=== PATIENT | male | born 1985 | race Caucasian/White ===

== ENCOUNTER 2020-02-29 18:51 | Observation (INO) | payer SELFPAY ==
--- NOTE | 2020-02-29 20:17 | ER Document Report ---
ED Medical Screen (RME) - General Chief Complaint: Hand Injury Stated Complaint: HAND INJURY Time Seen by Provider: 02/29/20 20:04 Mode of Arrival: Ambulatory Information source: Patient Notes: Patient is a 34-year-old male comes emergency room complaining of right ring finger pain and swelling. 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 - HPI Onset: Yesterday Onset/Duration: Sudden - With occasional buccal pain level very ago Pain Level: 4 Exacerbated by: Movement - Related Data Allergies/Adverse Reactions: No Known Allergies Allergy (Verified 02/29/20 20:03) Physical Exam - Vital signs Vitals: Temp Pulse Resp BP Pulse Ox 98.7 F 72 18 154/74 H 99 02/29/20 19:11 02/29/20 19:11 02/29/20 19:11 02/29/20 19:11 02/29/20 19:11 Interpretation: Normal - Notes Notes: PHYSICAL EXAMINATION: GENERAL well-nourished and in no acute distress. HEAD: Atraumatic, normocephalic. EYES: Pupils equal round and reactive to light, extraocular movements intact, sclera anicteric, conjunctiva are normal. ENT: Nares patent, oropharynx clear without exudates. Moist mucous membranes. NECK: Normal range of motion, supple without lymphadenopathy LUNGS: Breath sounds clear to auscultation bilaterally and equal. No wheezes rales or rhonchi. HEART: Regular rate and rhythm without murmurs Musculoskeletal: Examination patient's area concern is his right ring finger. Evaluation shows patient unable to get full extension of the finger at the PIP and noticed on the palmar side there is an area that appears to have been punctured. Swelling is moderate although patient has normal cap refill in the nailbeds of the finger. 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 NEUROLOGICA. He says he will be reevaluated by someone in the back normal speech, normal gait. Normal sensory, motor exams PSYCH: Normal mood, normal affect. SKIN: Warm, Dry, normal turgor, no rashes or lesions noted. Assessment is RME read it right now to get pneumonia I have greeted and performed a rapid initial assessment of this patient. A comprehensive ED assessment evaluation of the patient, analysis of the test results and completion of the medical decision-making process will be conducted by an additional ED provider. Course - Vital Signs Vital signs: Temp Pulse Resp BP Pulse Ox 98.7 F 72 18 154/74 H 99 02/29/20 19:11 02/29/20 19:11 02/29/20 19:11 02/29/20 19:11 02/29/20 19:11
[2020-02-29] MEDS ORDERED: OXYCODONE-ACETAMINOPHEN 5-325 MG TABLET PO ONE (20:19)
[2020-02-29] MEDS ORDERED: CLINDAMYCIN 900 MG/D5W RTU 900 MG/50 ML RTUPB IV ONE (20:21)
[2020-02-29] MEDS ORDERED: DOXYCYCLINE HYCLATE INJ 100 MG VIAL IV ONE (20:22)
[2020-02-29 20:59] LABS: ABSOLUTE BASOPHILS # (AUTO) 0.1 10^3/uL (0.0-0.2); ABSOLUTE EOSINOPHILS # (AUTO) 0.4 10^3/uL (0.0-0.6); ABSOLUTE LYMPHOCYTES (AUTO) 1.7 10^3/uL (0.5-4.7); ABSOLUTE MONOCYTES (AUTO) 1.2 10^3/uL (0.1-1.4); ABSOLUTE NEUT (AUTO) 10.8 10^3/uL (1.7-8.2); BASOPHILS % (AUTO) 0.5 % (0-2); EOSINOPHILS % (AUTO) 2.9 % (0-6); HEMATOCRIT 44.9 % (37.9-51.0); HEMOGLOBIN 15.3 g/dL (13.5-17.0); MEAN CORPUSCULAR HEMOGLOBIN 30.3 pg (27.0-33.4); MEAN CORPUSCULAR VOLUME 89 fl (80-97); MONOCYTES % (AUTO) 8.5 % (3-13); PLATELET COUNT 291 10^3/uL (150-450); RED BLOOD COUNT 5.05 10^6/uL (4.35-5.55); RED CELL DISTRIBUTION WIDTH 12.8 % (11.5-14.0); SEGMENTED NEUTROPHILS % (AUTO) 76.1 % (42-78); TOTAL CELLS COUNTED % (AUTO) 100 %; WHITE BLOOD COUNT 14.2 10^3/uL (4.0-10.5)
[2020-02-29 21:14] LABS: ALBUMIN 4.6 g/dL (3.5-5.0); ALKALINE PHOSPHATASE 65 U/L (38-126); ANION GAP 10 (5-19); ASPARTATE AMINO TRANSFERASE 31 U/L (17-59); BILIRUBIN,TOTAL 0.8 mg/dL (0.2-1.3); BLOOD UREA NITROGEN 17 mg/dL (7-20); CALCIUM 9.5 mg/dL (8.4-10.2); CARBON DIOXIDE 24 mmol/L (22-30); CHLORIDE 102 mmol/L (98-107); GLUCOSE 90 mg/dL (75-110); POTASSIUM 4.2 mmol/L (3.6-5.0); TOTAL PROTEIN 7.8 g/dL (6.3-8.2)
[2020-02-29 22:25] LABS: ERYTHROCYTE SEDIMENTATION RATE 12 mm/hr (0-15)
--- NOTE | 2020-02-29 22:29 | RADIOLOGY REPORT (SQ) ---
EXAM DESCRIPTION: CLINICAL HISTORY: 34 years ,Male injury/infection COMPARISON: None. TECHNIQUE: RIGHT finger, Three view FINDINGS: No acute fractures or dislocations are identified. No osseous destructive lesions. No radiopaque foreign object noted. Soft tissue swelling over the fourth digit which may reflect cellulitis. IMPRESSION: No acute fracture or dislocation is identified. Soft tissue swelling over the fourth digit which could reflect cellulitis
[2020-02-29] MEDS ORDERED: VANCOMYCIN HCL INJ 1000 MG VIAL IV ONE (23:00)
[2020-02-29] MEDS ORDERED: PIPERACILLIN/TAZOBACTAM 3.375 GM VIAL IV ONE (23:00)
--- NOTE | 2020-02-29 23:01 | ER Document Report ---
ED General - General Chief Complaint: Finger Injury Stated Complaint: HAND INJURY Time Seen by Provider: 02/29/20 20:04 Mode of Arrival: Ambulatory - HPI Notes: Patient is a 34-year-old male who presents to the emergency department for evaluation of right ring finger pain and swelling. He is a [employer]eb[employer]. He states he was working yesterday, had some pain in his finger. He had worsened pain and swelling, as well as redness, throughout the day. He admits to sticking a sewing needle into the most painful area, states he only got blood drainage. He denies any fevers or chills. No nausea or vomiting. He puts his pain at a 4 out of 5, its worsened by any sort of extension of the finger. Nothing seems to make it better. - Related Data Allergies/Adverse Reactions: No Known Allergies Allergy (Verified 02/29/20 20:03) Past Medical History - General Information source: Patient - Social History Smoking Status: Former Smoker Chew tobacco use (# tins/day): Yes Frequency of alcohol use: Rare Drug Abuse: Marijuana Family History: Reviewed & Not Pertinent Patient has homicidal ideation: No Pulmonary Medical History: Reports: Hx Asthma Review of Systems - Review of Systems Musculoskeletal: See HPI -: Yes All other systems reviewed and negative Physical Exam - Vital signs Vitals: Temp Pulse Resp BP Pulse Ox 98.7 F 72 18 154/74 H 99 02/29/20 19:11 02/29/20 19:11 02/29/20 19:11 02/29/20 19:11 02/29/20 19:11 - Notes Notes: This is a very pleasant 34-year-old male appears stated age in no acute distress. Head is normocephalic and atraumatic, pupils are equal round, re active to light. Oral mucosa is moist, uvula is midline. Heart is regular rate and rhythm, lungs are clear to auscultation bilaterally. The remainder of the physical exam is limited to the area of chief complaint. Examination of the right hand yields symmetrical edema of the right ring finger. He has digit held in passive flexion. There appears to be a small puncture wound overlying the palmar aspect of the proximal interphalangeal joint, no clear purulence. He has some erythema that tracks on the palmar aspect of the hand and to the dorsum of the hand as well. Capillary refill is brisk. Course - Re-evaluation Re-evalutation: 02/29/20 23:00 Patient presents to the emergency department for evaluation. He has significant findings concerning for flexor tenosynovitis. X-ray did not reveal any clear foreign body or gas. Laboratory investigations revealed a leukocytosis. He was given doxycycline and clindamycin through triage. I spoke with Dr. Justyn Lawton, on-call orthopedic surgeon. He asked that the patient be given Zosyn and vancomycin, will admit the patient to his service. - Vital Signs Vital signs: Temp Pulse Resp BP Pulse Ox 98.1 F 65 18 144/91 H 100 02/29/20 23:53 02/29/20 23:53 02/29/20 19:11 02/29/20 23:53 02/29/20 23:53 - Laboratory Result Diagrams: 02/29/20 20:43 02/29/20 20:43 Laboratory results interpreted by me: 02/29/20 02/29/20 02/29/20 20:43 20:43 20:43 WBC 14.2 H Lymph % (Auto) 12.0 L Absolute Neuts (auto) 10.8 H Sodium 135.6 L C-Reactive Protein 22.8 H - Diagnostic Test Radiology reviewed: Reports reviewed Radiology results interpreted by me: 02/29/20 23:01 Finger X-Ray 02/29/20 21:38 IMPRESSION: No acute fracture or dislocation is identified. Soft tissue swelling over the fourth digit which could reflect cellulitis Discharge - Discharge Clinical Impression: Flexor tenosynovitis of finger Condition: Stable Disposition: ADMITTED INPATIENT Admitting Provider: Dr. Lawton Unit Admitted: Medical Floor
[2020-02-29] MEDS ORDERED: ACETAMINOPHEN 325 MG TABLET PO PRN (23:03)
[2020-02-29] MEDS ORDERED: OXYCODONE-ACETAMINOPHEN 5-325 MG TABLET PO PRN (23:03)
[2020-02-29] MEDS ORDERED: NORMAL SALINE 1000 ML 1,000 ML IV PRN (23:03)
[2020-02-29] MEDS ORDERED: MAGNESIUM HYDROXIDE SUSP 30 ML UDCUP PO PRN (23:03)
[2020-02-29] MEDS ORDERED: MORPHINE SULFATE 10 MG/ML INJ IV PRN (23:03)
[2020-02-29] MEDS ORDERED: VANCOMYCIN HCL INJ 1000 MG VIAL IV SCH (23:15)
[2020-02-29] MEDS ORDERED: VANCOMYCIN HCL INJ 1000 MG VIAL IV PRN (23:40)
[2020-02-29] MEDS ORDERED: VANCOMYCIN HCL 1,500 MG in DEXTROSE 5%-WATER 250 ML IV ONE (23:45)
[2020-03-01] MEDS ORDERED: PIPERACILLIN/TAZOBACTAM 3.375 GM VIAL IV SCH
[2020-03-01] MEDS ORDERED: PIPERACILLIN/TAZOBACTAM 3.375 GM VIAL IV PRN (01:06)
[2020-03-01] MEDS ORDERED: VANCOMYCIN HCL INJ 500 MG VIAL ONE (01:16)
[2020-03-01] MEDS ORDERED: PIPERACILLIN/TAZOBACTAM 3.375 GM VIAL IV ONE (01:16)
[2020-03-01] MEDS ORDERED: VANCOMYCIN HCL INJ 1000 MG VIAL ONE (01:16)
[2020-03-01 05:26] LABS: ABSOLUTE BASOPHILS # (AUTO) 0.1 10^3/uL (0.0-0.2); ABSOLUTE EOSINOPHILS # (AUTO) 0.6 10^3/uL (0.0-0.6); ABSOLUTE LYMPHOCYTES (AUTO) 2.6 10^3/uL (0.5-4.7); ABSOLUTE MONOCYTES (AUTO) 1.1 10^3/uL (0.1-1.4); ABSOLUTE NEUT (AUTO) 5.9 10^3/uL (1.7-8.2); BASOPHILS % (AUTO) 0.7 % (0-2); EOSINOPHILS % (AUTO) 5.5 % (0-6); HEMATOCRIT 44.2 % (37.9-51.0); HEMOGLOBIN 15.3 g/dL (13.5-17.0); LYMPHOCYTES % (AUTO) 25.3 % (13-45); MEAN CORPUSCULAR HEMOGLOBIN 30.7 pg (27.0-33.4); MEAN CORPUSCULAR HGB CONC 34.5 g/dL (32.0-36.0); MEAN CORPUSCULAR VOLUME 89 fl (80-97); MONOCYTES % (AUTO) 10.6 % (3-13); PLATELET COUNT 250 10^3/uL (150-450); RED BLOOD COUNT 4.97 10^6/uL (4.35-5.55); RED CELL DISTRIBUTION WIDTH 12.9 % (11.5-14.0); SEGMENTED NEUTROPHILS % (AUTO) 57.9 % (42-78); TOTAL CELLS COUNTED % (AUTO) 100 %; WHITE BLOOD COUNT 10.2 10^3/uL (4.0-10.5)
[2020-03-01] MEDS: PIPERACILLIN SODIUM/TAZOBACTAM 3.375 GM in NORMAL SALINE 100 ML IV SCH ×2 (05:50→11:09)
--- NOTE | 2020-03-01 07:37 | PDOC CONSULTATION ---
Consultation Consult Date: 03/01/20 Provider Consulted: FRANSICO BURKS JR Consult reason:: Right 4th digit infection History of Present Illness Admission Date/PCP: 02/29/20 23:09 History of Present Illness: VANESSA BARNES is a 34 year old male who presents to [facility] ER yesterday after sustaining a puncture to the right 4th digit and having increased swelling, pain, redness and restricted ROM. 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 This particular injury occured 2 days ago. He attempted to decompress the area himself with a sewing needle but overnight his symptoms worsened and then he presented to the ER. He was placed on IV antibiotics in the ER and admitted for evaluation and further antibiotic treatment. Pain is currently a 2/5, worse with attempted motion, aching, burning in nature, improved with pain medication. He reports considerable improvement overnight in regards to pain, swelling and ability to move his finger. Denies any purulent drainage. Past Medical History Pulmonary Medical History: Reports: Asthma Psychiatric Medical History: Denies: Depression Social History Smoking Status: Never Smoker Hx Recreational Drug Use: Yes Drugs: Marijuana Family History Family History: Reviewed & Not Pertinent Parental Family History Reviewed: No Children Family History Reviewed: NA Sibling(s) Family History Reviewed.: NA Medication/Allergy Home Medications: No Home Medications 03/01/20 Allergies/Adverse Reactions: No Known Allergies Allergy (Verified 02/29/20 20:03) Review of Systems Review of Systems: Constitutional: ABSENT: anorexia, chills, night sweats Cardiovascular: ABSENT: chest pain Respiratory: ABSENT: dyspnea Gastrointestinal: ABSENT: vomiting Genitourinary: ABSENT: dysuria Integumentary: ABSENT: rash Neurological: ABSENT: confusion, memory loss, numbness Psychiatric: ABSENT: hallucinations Hematologic/Lymphatic: ABSENT: easy bleeding Physical Exam Vital Signs: Temp Pulse Resp BP Pulse Ox 97.8 F 57 L 18 136/80 H 100 03/01/20 00:40 03/01/20 00:40 03/01/20 00:40 03/01/20 00:40 03/01/20 00:40 Intake & Output 02/29/20 03/01/20 03/02/20 06:59 06:59 06:59 Intake Total 250 Balance 250 Weight 75.7 kg Physical Exam: General appearance: PRESENT: no acute distress, cooperative, well-nourished Head exam: PRESENT: atraumatic, normocephalic Eye exam: PRESENT: EOMI Ear exam: PRESENT: normal external ear exam Mouth exam: PRESENT: neck supple Neck exam: ABSENT: tracheal deviation Respiratory exam: PRESENT: symmetrical, unlabored. ABSENT: accessory muscle use, wheezes Pulses: PRESENT: normal radial pulses, normal dorsalis pedis pulse Vascular exam: PRESENT: normal capillary refill GI/Abdominal exam: ABSENT: distended, firm Extremities exam: PRESENT: full ROM of bilateral shoulders, elbows wrists, knees, hips and ankles without pain Musculoskeletal exam: PRESENT: full ROM, normal inspection of all 4 extremities aside from that noted below. Neurological exam: PRESENT: alert, awake, oriented to person, oriented to place, oriented to time Psychiatric exam: PRESENT: appropriate affect. ABSENT: agitated Focused psych exam: ABSENT: catatonic Skin exam: PRESENT: intact. ABSENT: dry All as above aside from that noted in the HPI and the following: RUE - NVI - Normal ROM of [place], Elbow, Wrist, hand, aside from PIP and MCP of 4th digit 2 puncture wounds present volar to proximal phalanx, local erythema and swelling that does not track proximally. Near full ROM with mild to moderate pain, more pronounced at extremes. No palpable abscess, fluctuance or appreciable drainable fluid collection. Results Laboratory Results: 03/01/20 04:42 02/29/20 20:43 02/29/20 02/29/20 02/29/20 20:43 20:43 20:43 WBC 14.2 H RBC 5.05 Hgb 15.3 Hct 44.9 MCV 89 MCH 30.3 MCHC 34.0 RDW 12.8 Plt Count 291 Seg Neutrophils % 76.1 Sodium 135.6 L Potassium 4.2 Chloride 102 Carbon Dioxide 24 Anion Gap 10 BUN 17 Creatinine 0.85 Est GFR ( Amer) > 60 Glucose 90 Calcium 9.5 Total Bilirubin 0.8 AST 31 Alkaline Phosphatase 65 C-Reactive Protein 22.8 H Total Protein 7.8 Albumin 4.6 03/01/20 04:42 WBC 10.2 RBC 4.97 Hgb 15.3 Hct 44.2 MCV 89 MCH 30.7 MCHC 34.5 RDW 12.9 Plt Count 250 Seg Neutrophils % 57.9 Sodium Potassium Chloride Carbon Dioxide Anion Gap BUN Creatinine Est GFR ( Amer) Glucose Calcium Total Bilirubin AST Alkaline Phosphatase C-Reactive Protein Total Protein Albumin Impressions: Finger X-Ray 02/29/20 21:38 IMPRESSION: No acute fracture or dislocation is identified. Soft tissue swelling over the fourth digit which could reflect cellulitis Assessment & Plan - Diagnosis (1) Infected puncture wound of finger Is this a current diagnosis for this admission?: Yes Plan: At this time this does not seem to be tenosynovitis but rather a local soft tissue infection over the volar proximal phalanx. Given his good response to abx, and no current surgical indication, as well as his relatively good ability to move his finger actively and passively, will allow discharge home on PO Abx. - Had a long discussion with the patient in regards to alarming symptoms that would require urgent follow up or return to the emergency department. - Will follow closely with office follow up on Thursday. - Encourage soaks with epson salt and dilute iodine solution 2 - 3 times daily for 20 minutes at a time. - Encourage maintaining full active ROM. - Will follow blood cultures.
[2020-03-01] MEDS ORDERED: IBUPROFEN 800 MG TABLET PO PRN (07:43)
[2020-03-01] MEDS ORDERED: SULFAMETHOXAZOLE/TRIMETHOPRIM 800-160 MG TABLET PO SCH (10:00)
[2020-03-01] MEDS ORDERED: VANCOMYCIN HCL 1,000 MG in DEXTROSE 5%-WATER 250 ML IV ONE (12:00)
[2020-03-01 13:55] VITALS: BP 136/80
--- NOTE | 2020-03-07 09:55 | PDOC H&P ---
History of Present Illness Admission Date/PCP: 02/29/20 23:09 Past Medical History Past Medical History: VANESSA BARNES is a 34 year old male who presents to [facility] ER yesterday after sustaining a puncture to the right 4th digit and having increased swelling, pain, redness and restricted ROM. 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 This particular injury occured 2 days ago. He attempted to decompress the area himself with a sewing needle but overnight his symptoms worsened and then he presented to the ER. He was placed on IV antibiotics in the ER and admitted for evaluation and further antibiotic treatment. Pain is currently a 2/5, worse with attempted motion, aching, burning in nature, improved with pain medication. He reports considerable improvement overnight in regards to pain, swelling and ability to move his finger. Denies any purulent drainage. Pulmonary Medical History: Reports: Asthma Psychiatric Medical History: Denies: Depression Social History Smoking Status: Never Smoker Hx Recreational Drug Use: Yes Drugs: Marijuana Family History Family History: Reviewed & Not Pertinent Parental Family History Reviewed: No Children Family History Reviewed: NA Sibling(s) Family History Reviewed.: NA Medication/Allergy Home Medications: Acetaminophen [Tylenol 325 mg Tablet] 650 mg PO Q4HP PRN #0 tablet 03/01/20 Albuterol Sulfate [Ventolin 0.083% Neb 2.5 mg/3 ml Ampul] 1 vial NEB Q6HP PRN 03/01/20 Ibuprofen [Motrin 800 mg Tablet] 800 mg PO Q8HP PRN tablet 03/01/20 Sulfamethoxazole/Trimethoprim [Septra-Ds 800-160 mg Tablet] 1 tab PO BID 10 Days #20 tablet 03/01/20 Allergies/Adverse Reactions: No Known Allergies Allergy (Verified 02/29/20 20:03) Physical Exam Vital Signs: Temp Pulse Resp BP Pulse Ox 98.0 F 65 18 136/80 H 100 03/01/20 13:51 03/01/20 13:51 03/01/20 13:51 03/01/20 13:51 03/01/20 13:51 Results Laboratory Results: 03/01/20 04:42 02/29/20 20:43 Impressions: Finger X-Ray 02/29/20 21:38 IMPRESSION: No acute fracture or dislocation is identified. Soft tissue swelling over the fourth digit which could reflect cellulitis Assessment & Plan - Diagnosis (1) Infected puncture wound of finger Is this a current diagnosis for this admission?: Yes Plan: This is a correction to the prior note labled "Consult", which should have been labled "H&P". Please refer to that note for details as an H&P At this time this does not seem to be tenosynovitis but rather a local soft tissue infection over the volar proximal phalanx. Given his good response to abx, and no current surgical indication, as well as his relatively good ability to move his finger actively and passively, will allow discharge home on PO Abx. - Had a long discussion with the patient in regards to alarming symptoms that would require urgent follow up or return to the emergency department. - Will follow closely with office follow up on Thursday. - Encourage soaks with epson salt and dilute iodine solution 2 - 3 times daily for 20 minutes at a time. - Encourage maintaining full active ROM. - Will follow blood cultures.
--- NOTE | 2020-03-08 12:09 | Discharge Summary ---
Discharge Summary (SDC) - Discharge Final Diagnosis: right 4th digit finger infection. Discharge Date: 03/01/20 Condition: Stable Forms: Discharge POC-Adult Treatment or Instructions: - Had a long discussion with the patient in regards to alarming symptoms that would require urgent follow up or return to the emergency department. - Will follow closely with office follow up on Thursday. - Encourage soaks with epson salt and dilute iodine solution 2 - 3 times daily for 20 minutes at a time. - Encourage maintaining full active ROM. - Will follow blood cultures. - Discharge after next dose of Vancomycin, then send home on PO bactrim Prescriptions: Sulfamethoxazole/Trimethoprim [Septra-Ds 800-160 mg Tablet] 1 tab PO BID 10 Days #20 tablet Referrals: FRANSICO BURKS JR, DO [ACTIVE PROVISIONAL STAFF] - 03/05/20 1:00 pm (ARRIVE 15 MINUTES EARLY TO COMPLETE PAPERWORK. OFFICE VISIT WILL HAVE TO BE PAID UP FRONT WHICH IS APPROX. $200.00 PER OFFICE STAFF.) Discharge Diet: As Tolerated Respiratory Treatments at Home: Deep Breathing/Coughing Discharge Activity: Activity As Tolerated, No Lifting Over 10 Pounds Home Care Assistance: None Needed Report the Following to Your Physician Immediately: Increase in Pain, Fever over 101 Degrees, Redness, Swelling, Drainage-Yellow
== END 2020-03-01 14:44 | disposition home or self-care (01) ==
LOC: ER 18:51 → INTOOBSV 23:09 → EH 23:09 → 4S 03-01 00:50
PROVIDERS: ADMIT Orthopaedic Surgery; ATTEND Orthopaedic Surgery
DX: S61.234A Puncture wound without foreign body of right ring finger without damage to nail, initial encounter (principal); L08.89 Other specified local infections of the skin and subcutaneous tissue; X58.XXXA Exposure to other specified factors, initial encounter; Y99.0 Civilian activity done for income or pay; J45.909 Unspecified asthma, uncomplicated; F12.10 Cannabis abuse, uncomplicated; Z87.891 Personal history of nicotine dependence
CPT/HCPCS: 99285; 96365; 36415 ×2; 87040; 85025 ×2; 85652; 86140; 80053; 73140; G0378 ×2; J3490 ×2; J7060; J7050; J7030; J3370; J2543